=== PATIENT | female | born 1980 | race Caucasian/White ===

== ENCOUNTER → 2016-06-26 | Outpatient (CLI) | payer OTHER ==
--- NOTE | 2016-06-26 09:25 | XR ---
EXAMINATION TYPE: XR KUB DATE OF EXAM: 06/26/2016 9:21 AM COMPARISON: NONE HISTORY: Pain TECHNIQUE: Single supine KUB image of the abdomen is obtained FINDINGS: Small bowel demonstrates no evidence for dilatation or air fluid levels. Gas and fecal material is seen in non-distended colon. No convincing evidence for pneumoperitoneum. No unusual calcifications. The lung bases are clear. The osseous structures are intact. IMPRESSION: 1. Overall nonobstructive bowel gas pattern.
== END ==
LOC: RADXRMAIN 09:06
PROVIDERS: ATTEND Internal Medicine
DX: R31.9 Hematuria, unspecified (principal)
CPT/HCPCS: 74000